=== PATIENT | male | born 1985 | race Caucasian/White ===

== ENCOUNTER 2017-02-07 20:15 | Emergency (ER) | payer OTHER ==
[~2017-02-07] VITALS: Ht 180.3 cm; Wt 101.0 kg
[2017-02-07 20:35] VITALS: BP 128/74
--- NOTE | 2017-02-07 21:01 | PHYS DOC ---
Past History Past Medical History: No Pertinent History Past Surgical History: Other Additional Past Surgical Histo: knee surgery Smoking: Non-smoker Alcohol Use: None Drug Use: None Adult General Chief Complaint Chief Complaint: SHOULDER INJURY [facility] HPI This patient is a pleasant 31-year-old male otherwise healthy who presents with shoulder pain that began approximately a week ago. While this patient was doing PT in the morning doing pushups he felt a sudden pop in his right shoulder with a burning pain with no radiation to the arm or fingers. He denies any neck pain and just ignore the painful next week. This morning while playing [employer] ball he felt increasing pain in his right shoulder exacerbated by rotational motion at the elbow and external rotation and abduction of the shoulder. He denies any obvious trauma, or prior injury to the shoulder. He is increased as I described with motion of the shoulder. It is a throbbing moderate pain is better with held in position of rest across the abdominal wall. Review of Systems Review of Systems Constitutional: Denies fever or chills [] Eyes: Denies change in visual acuity, redness, or eye pain [] HENT: Denies nasal congestion or sore throat [] Respiratory: Denies cough or shortness of breath [] Cardiovascular: No additional information not addressed in HPI [] GI: Denies abdominal pain, nausea, vomiting, bloody stools or diarrhea [] : Denies dysuria or hematuria [] Musculoskeletal: Denies back pain he does complain of right shoulder pain with movements Integument: Denies rash or skin lesions [] Neurologic: Denies headache, focal weakness or sensory changes [] Endocrine: Denies polyuria or polydipsia [] Allergies Allergies Allergies Coded Allergies Type Severity Reaction Last Updated Verified No Known Drug Allergies 12/25/14 No Physical Exam Physical Exam Constitutional: Well developed, well nourished, no acute distress, non-toxic appearance. [] Neck: Normal range of motion, no tenderness, supple, negative Spurling's test Cardiovascular:Heart rate regular rhythm, no murmur [] Lungs & Thorax: Bilateral breath sounds clear to auscultation [] Skin: Warm, dry, no erythema, no rash. [] Back: No tenderness, no CVA tenderness. [] Extremities: Tenderness specifically over the before meals joint with mild elevation and without soft tissue swelling or obvious clavicle deformity. Patient is decreased range of motion secondary to pain specifically with abduction external rotation of the elbow and elevation over the head. Neurologic: Alert and oriented X 3, normal motor function, normal sensory function, no focal deficits noted. [] Psychologic: Affect normal, judgement normal, mood normal. [] EKG EKG [] Radiology/Procedures Radiology/Procedures [] 3 view shoulder film timed 2039 6 PM 02/07/[address] Liu demonstrates no occult fracture alignment of the joint itself is within normal limits AC joint grade 1 sprain less than 50% elevation. Course & Med Decision Making Course & Med Decision Making Pertinent Labs and Imaging studies reviewed. (See chart for details) . Patient vital sign, nursing notes and physical exam and x-ray findings. Patient has a AC joint separation graded at level I. I'll provide him a sling pain medications and anti-inflammatories for comfort referral to his primary care doctor for physical therapy referral. Impression: Grade 1 AC joint injury and separation. Disposition: PCP follow-up with PT referral [] Dragon Disclaimer Dragon Disclaimer This chart was dictated in whole or in part using Voice Recognition software in a busy, high-work load, and often noisy Emergency Department environment. It may contain unintended and wholly unrecognized errors or omissions. Departure Departure: Impression: Primary Impression: Acromioclavicular joint separation, type 1 Additional Impression: AC joint pain Disposition: 01 HOME, SELF-CARE Referrals: AILEEN DOVE (PCP) Patient Instructions: Acromioclavicular Injuries Additional Instructions: Please follow-up with your primary care doctor in the next 24 hours for therapy referral please wear the sling and use the pain medications or symptoms. Return for any questions or concerns he might have increased pain despite treatment or decreased sensation in the upper arm or hand despite treatment. Scripts Naproxen (NAPROSYN) 500 Mg Tablet 1 TAB PO BID, #20 TAB 1 Refill Prov: SMITH LIU MD 02/07/17 Hydrocodone Bit/Acetaminophen (HYDROCODONE-APAP 5-325 ) 1 Each Tablet 1 TAB PO PRN Q6HRS Y for PAIN for 2 Days, #6 TAB 0 Refills Prov: SMITH LIU MD 02/07/17 Problem Qualifiers SMITH LIU MD Feb 07, 2017 21:01
[2017-02-07] MEDS ORDERED: HYDR-2758 PO (21:13)
[2017-02-07] MEDS ORDERED: NAPR500T PO (21:13)
--- NOTE | 2017-02-08 08:42 | RAD ---
RIGHT SHOULDER , 3 VIEWS Clinical Indication: Severe right shoulder pain after throwing injury one week ago, worse today Comparison: None. Findings: There is no acute fracture or dislocation. The acromioclavicular and glenohumeral joints are intact. The visualized lung is clear. There is no evidence of an acute displaced rib fracture. Small sclerotic densities in the humeral head may be bone islands. There is no soft tissue abnormality. IMPRESSION: No acute fracture or dislocation.
== END 2017-02-07 21:28 | disposition home or self-care (01) ==
LOC: ER 20:15
DX: S43.101A Unspecified dislocation of right acromioclavicular joint, initial encounter (principal); X58.XXXA Exposure to other specified factors, initial encounter; Y93.B2 Activity, push-ups, pull-ups, sit-ups; Y99.8 Other external cause status; Y92.89 Other specified places as the place of occurrence of the external cause
CPT/HCPCS: 73030; 99284

== ENCOUNTER 2017-10-04 18:47 | Emergency (ER) | payer OTHER ==
[~2017-10-04] VITALS: Ht 180.3 cm; Wt 103.9 kg
[~2017-10-04 18:47] MED LIST: HYDR-2758 PO; NAPR-683 PO
[2017-10-04] MEDS ORDERED: IBUP200T44 PO (19:03)
[2017-10-04] MEDS ORDERED: AMOX1TAB11 PO (19:03)
[2017-10-04] MEDS ORDERED: HYDR-2758 PO (19:03)
--- NOTE | 2017-10-04 19:21 | PHYS DOC ---
Past History Past Medical History: No Pertinent History Additional Past Medical Histor: prior ear infections Past Surgical History: Other Additional Past Surgical Histo: knee surgery, bilateral mastoidectomies Smoking: Cigarettes Alcohol Use: None Drug Use: None Adult General Chief Complaint Chief Complaint: FACE PAIN [facility] HPI Patient is a pleasant 32-year-old male with a known history of prior otitis media bilaterally that developed into cellulitis that required bilateral mastoidectomies. Patient has had one and half days of ear pain specifically in the left with radiation to the jaw a fullness in his ear without hearing loss, he's had no fevers no chills mild nasal congestion, we just presents with increasing facial pain without swelling vision changes or problems with his teeth. He denies any hot and cold food intolerance, denies any change in voice, denies any sore throat or cough. Review of Systems Review of Systems Constitutional: Denies fever or chills [] Eyes: Denies change in visual acuity, redness, or eye pain [] HENT: Slight nasal congestion without sore throat slight year pain in the left ear with jaw movement. No soft tissue swelling the ear ear canal or drainage from the ear. No hearing loss Respiratory: Denies cough or shortness of breath [] Cardiovascular: No additional information not addressed in HPI [] GI: Denies abdominal pain, nausea, vomiting, bloody stools or diarrhea [] : Denies dysuria or hematuria [] Musculoskeletal: Denies back pain or joint pain [] Integument: Denies rash or skin lesions [] Neurologic: Denies headache, focal weakness or sensory changes [] Endocrine: Denies polyuria or polydipsia [] All other systems were reviewed and found to be within normal limits, except as documented in this note. Allergies Allergies Allergies Coded Allergies Type Severity Reaction Last Updated Verified No Known Drug Allergies 12/25/14 No Physical Exam Physical Exam Of the vital signs noted on the chart patient noted to be hypertensive otherwise normal Constitutional: Well developed, well nourished, no acute distress, non-toxic appearance. [] HENT: Normocephalic, atraumatic, bilateral external ears normal, oropharynx moist, no oral exudates, nose normal. He has significant fluid behind the left TM there is bulging of the left TM without tenderness of the tragus or movement of the external pinna. No facial tenderness over the frontal and maxillary sinus. Normal looking dentition with no obvious signs of dental caries soft tissue swelling of the gingiva or mucosa. No exudates or tonsillar hypertrophy[] Eyes: PERRLA, EOMI, conjunctiva normal, no discharge. [] Neck: Normal range of motion, no tenderness, supple, no stridor. [No anterior cervical lymphadenopathy] Cardiovascular:Heart rate regular rhythm, no murmur [] Lungs & Thorax: Bilateral breath sounds clear to auscultation [] Neurologic: Alert and oriented X 3, normal motor function, normal sensory function, no focal deficits noted. [] Current Patient Data Vital Signs Vital Signs Date Time Temp Pulse Resp B/P (MAP) Pulse Ox O2 Delivery O2 Flow Rate FiO2 10/04/17 18:59 97.6 69 20 164/84 (110) 99 Room Air EKG EKG [] Radiology/Procedures Radiology/Procedures [] Course & Med Decision Making Course & Med Decision Making Pertinent Labs and Imaging studies reviewed. (See chart for details) []he presents with ear pain and in my estimation otitis media of the left ear. He does have some eschar secondary to prior PE tubes in his ears. There is no obvious otitis externa or soft tissue swelling external canal. Patient has no obvious signs of dentalgia or oral infection Patient is no facial swelling or tenderness to palpation over the frontal maxillary sinus. Patient's temporal artery is not palpably erythematous or noted. My impression is otitis media without complication otitis externa discharge: I've spoken with the patient and/or caregivers. I've explained the patient's condition, diagnosis and treatment plan based on information available to me at this time. I've answered the patient's and/or caregivers questions and addressed any concerns. The patient and/or caregivers have a good understanding the patient's diagnosis, condition and treatment plan as can be expected at this point. Vital signs have been stabilized. The patient's condition is stable for discharge from the emergency department. The patient will pursue further outpatient evaluation with her primary care provider or other designated consulting physician as outlined in the discharge instructions. Patient and/or caregivers are agreeable to this plan of care and follow-up instructions have been explained in detail. The patient and/or caregivers have received these instructions in written format and expressed understanding of these discharge instructions. The patient and her caregivers are aware that if any significant change in condition or worsening of symptoms should prompt him to immediately return to this of the closest emergency department. If an emergent department is not readily available I would encourage him to call 911. Dragon Disclaimer Dragon Disclaimer This electronic medical record was generated, in whole or in part, using a voice recognition dictation system. Departure Departure: Impression: Primary Impression: Otitis media Disposition: 01 HOME, SELF-CARE Condition: IMPROVED Referrals: AILEEN DOVE (PCP) Patient Instructions: Otitis Media, Adult Additional Instructions: discharge: I've spoken with the patient and/or caregivers. I've explained the patient's condition, diagnosis and treatment plan based on information available to me at this time. I've answered the patient's and/or caregivers questions and addressed any concerns. The patient and/or caregivers have a good understanding the patient's diagnosis, condition and treatment plan as can be expected at this point. Vital signs have been stabilized. The patient's condition is stable for discharge from the emergency department. The patient will pursue further outpatient evaluation with her primary care provider or other designated consulting physician as outlined in the discharge instructions. Patient and/or caregivers are agreeable to this plan of care and follow-up instructions have been explained in detail. The patient and/or caregivers have received these instructions in written format and expressed understanding of these discharge instructions. The patient and her caregivers are aware that if any significant change in condition or worsening of symptoms should prompt him to immediately return to this of the closest emergency department. If an emergent department is not readily available I would encourage him to call 911. Scripts Hydrocodone Bit/Acetaminophen (HYDROCODONE-APAP 5-325 ) 1 Each Tablet 1 TAB PO PRN Q6HRS Y for PAIN for 3 Days, #10 TAB 0 Refills Prov: SMITH LIU MD 10/04/17 Ibuprofen (MOTRIN IB) 200 Mg Tablet 400 MG PO QID for 7 Days, #56 TAB Prov: SMITH LIU MD 10/04/17 Amoxicillin/Potassium Clav (AMOX TR-K CLV 875-125 MG TAB) 1 Each Tablet 1 TAB PO BID, #20 TAB Prov: SMITH LIU MD 10/04/17 SMITH LIU MD Oct 04, 2017 19:21
[2017-10-04 19:30] VITALS: BP 135/87
[2017-10-04] MEDS ORDERED: HYDROcodone/APAP 5/325MG 1 TAB TABLET PO ONE (19:30)
[2017-10-04] MEDS ORDERED: AMOXICILLIN/K CLAV 875/125MG TABLET. PO ONE (19:30)
[2017-10-04] MEDS ORDERED: KETOROLAC 60 MG/2 ML VIAL. IM ONE (19:30)
== END 2017-10-04 19:30 | disposition home or self-care (01) ==
LOC: ER 18:47
DX: H66.92 Otitis media, unspecified, left ear (principal); R09.81 Nasal congestion; F17.210 Nicotine dependence, cigarettes, uncomplicated
CPT/HCPCS: 96372; 99283; J1885

== ENCOUNTER 2018-04-09 17:20 | Emergency (ER) | payer OTHER ==
[~2018-04-09] VITALS: Ht 177.8 cm; Wt 100.0 kg
[~2018-04-09 17:20] MED LIST changes: +AMOX1TAB11 PO; +IBUP200T44 PO
[2018-04-09] MEDS ORDERED: AMOX500C PO (18:13)
--- NOTE | 2018-04-09 18:13 | PHYS DOC ---
Past History Past Medical History: No Pertinent History, Other Additional Past Medical Histor: prior ear infections Past Surgical History: Knee Replacement, Other Additional Past Surgical Histo: knee surgery, bilateral mastoidectomies Smoking: Cigarettes Alcohol Use: None Drug Use: None Adult General Chief Complaint Chief Complaint: EARACHE/EAR PAIN [facility] HPI Patient is a 33 year old male who presents with complaint of left ear pain for the past 2 days. Patient states he's had similar symptoms with ear infection. Patient has had history of multiple ear infections and states that he has had a tympanostomy tube placed in the right ear and has had bilateral mastoidectomies done due to previous history of infection. Patient states he is having pain in his ear and along his left jaw. Patient denies associated fever and denies any drainage from the left ear. Patient's had no congestion or cough associated with symptoms. Review of Systems Review of Systems Constitutional: Denies fever or chills [] Eyes: Denies change in visual acuity, redness, or eye pain [] HENT: Left ear pain, denies sore throat[] Respiratory: Denies cough or shortness of breath [] Cardiovascular: No additional information not addressed in HPI [] GI: Denies abdominal pain, nausea, vomiting, bloody stools or diarrhea [] : Denies dysuria or hematuria [] Musculoskeletal: Denies back pain or joint pain [] Integument: Denies rash or skin lesions [] Neurologic: Denies headache, focal weakness or sensory changes [] All other systems were reviewed and found to be within normal limits, except as documented in this note. Allergies Allergies Allergies Coded Allergies Type Severity Reaction Last Updated Verified No Known Drug Allergies 12/25/14 No Physical Exam Physical Exam Constitutional: Well developed, well nourished, afebrile, appears in mild discomfort. [] HENT: Normocephalic, atraumatic, bilateral external ears normal, left TM bulging , erythematous, purulent effusion present in middle ear, right TM with tympanostomy tube, no drainage present, oropharynx moist, no oral exudates, nose normal. [] Eyes: PERRLA, EOMI, conjunctiva normal, no discharge. [] Neck: Normal range of motion, no tenderness, supple, no stridor. [] Cardiovascular:Heart rate regular rhythm, no murmur [] Lungs & Thorax: Bilateral breath sounds clear to auscultation [] Abdomen: Bowel sounds normal, soft, no tenderness, no masses, no pulsatile masses. [] Skin: Warm, dry, no erythema, no rash. [] Back: No tenderness, no CVA tenderness. [] Extremities: No tenderness, no cyanosis, no clubbing, ROM intact, no edema. [] Neurologic: Alert and oriented X 3, normal motor function, normal sensory function, no focal deficits noted. [] Current Patient Data Vital Signs Vital Signs Date Time Temp Pulse Resp B/P (MAP) Pulse Ox O2 Delivery O2 Flow Rate FiO2 04/09/18 17:37 97.9 69 18 98 Room Air Lab Results Not performed EKG EKG Not performed[] Radiology/Procedures Radiology/Procedures Not performed[] Course & Med Decision Making Course & Med Decision Making Pertinent Labs and Imaging studies reviewed. (See chart for details) Patient diagnosed with acute otitis media of the left inner ear. Patient started on amoxicillin and will continue on 10 day courses outpatient. Advised follow-up with primary doctor 5 days if symptoms are not improving and return to emergency department for any worsening symptoms. Patient was understanding and agreement with treatment plan.[] Dragon Disclaimer Dragon Disclaimer This electronic medical record was generated, in whole or in part, using a voice recognition dictation system. Departure Departure: Impression: Primary Impression: Acute otitis media Disposition: 01 HOME, SELF-CARE Condition: IMPROVED Referrals: AILEEN DOEV (PCP) Patient Instructions: Otitis Media, Adult Additional Instructions: Follow up with your primary doctor in the next 5 days if symptoms are not improving. Return to the emergency department for any worsening symptoms. Scripts Amoxicillin (AMOXICILLIN) 500 Mg Capsule 2 CAP PO BID, #40 CAP Prov: AUNG FRENCH MD 04/09/18 Problem Qualifiers Primary Impression: Acute otitis media Otitis media type: suppurative Laterality: left Recurrence: not specified as recurrent Spontaneous tympanic membrane rupture: without spontaneous rupture Qualified Codes: H66.002 - Acute suppurative otitis media without spontaneous rupture of ear drum, left ear AUNG FRENCH MD Apr 09, 2018 18:13
[2018-04-09] MEDS ORDERED: AMOXICILLIN 250 MG CAPSULE PO ONE (18:15)
[2018-04-09 18:40] VITALS: BP 122/82
== END 2018-04-09 18:57 | disposition home or self-care (01) ==
LOC: ER 17:20
DX: H66.002 Acute suppurative otitis media without spontaneous rupture of ear drum, left ear (principal); F17.210 Nicotine dependence, cigarettes, uncomplicated; Z96.22 Myringotomy tube(s) status; Z98.890 Other specified postprocedural states
CPT/HCPCS: 99283

== ENCOUNTER 2018-04-11 12:15 | Emergency (ER) | payer OTHER ==
[~2018-04-11] VITALS: Ht 180.3 cm; Wt 98.9 kg
[~2018-04-11 12:15] MED LIST changes: +AMOX500C PO
[2018-04-11 12:38] VITALS: BP 126/72
--- NOTE | 2018-04-11 14:18 | PHYS DOC ---
Past History Past Medical History: No Pertinent History, Other Additional Past Medical Histor: prior ear infections Past Surgical History: Knee Replacement, Other Additional Past Surgical Histo: knee surgery, bilateral mastoidectomies Smoking: Cigarettes Alcohol Use: None Drug Use: None Adult General Chief Complaint Chief Complaint: FACE PAIN HPI HPI 33-year-old male returns emergency room with left ear pain that radiates to his face. The patient was recently seen here and diagnosed with an ear infection. He was discharged on amoxicillin. He has been taking that for 3 days but the pain seems to be spreading to his upper and lower jaw on the left side of his face. The patient has significant ear infection history with a prosthetic in the left year and a tympanostomy tube in the right. He has had bilateral mastoidectomies. He denies fever or chills. He has no other complaints. Review of Systems Review of Systems Constitutional: Denies fever or chills [] Eyes: Denies change in visual acuity, redness, or eye pain [] HENT: Denies nasal congestion or sore throat. Left ear and jaw pain. [] Respiratory: Denies cough or shortness of breath [] Cardiovascular: No additional information not addressed in HPI [] GI: Denies abdominal pain, nausea, vomiting, bloody stools or diarrhea [] : Denies dysuria or hematuria [] Musculoskeletal: Denies back pain or joint pain [] Integument: Denies rash or skin lesions [] Neurologic: Denies headache, focal weakness or sensory changes [] Endocrine: Denies polyuria or polydipsia [] All other systems were reviewed and found to be within normal limits, except as documented in this note. Allergies Allergies Allergies Coded Allergies Type Severity Reaction Last Updated Verified No Known Drug Allergies 12/25/14 No Physical Exam Physical Exam Constitutional: Well developed, well nourished, no acute distress, non-toxic appearance. [] HENT: Normocephalic, atraumatic, bilateral external ears normal, oropharynx moist, no oral exudates, nose normal. Left tympanic membrane has scarring, but is also still bulging, mild erythema. No obvious infection of teeth or gums.[] Eyes: PERRLA, EOMI, conjunctiva normal, no discharge. [] Neck: Normal range of motion, no tenderness, supple, no stridor. [] Cardiovascular:Heart rate regular rhythm, no murmur [] Lungs & Thorax: Bilateral breath sounds clear to auscultation [] Abdomen: Bowel sounds normal, soft, no tenderness, no masses, no pulsatile masses. [] Skin: Warm, dry, no erythema, no rash. [] Back: No tenderness, no CVA tenderness. [] Extremities: No tenderness, no cyanosis, no clubbing, ROM intact, no edema. [] Neurologic: Alert and oriented X 3, normal motor function, normal sensory function, no focal deficits noted. [] Psychologic: Affect normal, judgement normal, mood normal. [] Current Patient Data Vital Signs Vital Signs Date Time Temp Pulse Resp B/P (MAP) Pulse Ox O2 Delivery O2 Flow Rate FiO2 04/11/18 12:38 97.5 77 16 126/72 (90) Room Air EKG EKG [] Radiology/Procedures Radiology/Procedures [] Course & Med Decision Making Course & Med Decision Making Pertinent Labs and Imaging studies reviewed. (See chart for details) I believe the patient is likely to fail amoxicillin treatment due to his history and the fact his condition is not improved after 3 days of antibiotics. I will give him a Toradol injection here as well as his first dose of Augmentin. I will discharge him on 10 days of Augmentin. He is stable for discharge at this time. [] Dragon Disclaimer Dragon Disclaimer This electronic medical record was generated, in whole or in part, using a voice recognition dictation system. Departure Departure: Referrals: AILEEN DOVE (PCP) Scripts Amoxicillin/Potassium Clav (AUGMENTIN 875-125 TABLET) 1 Each Tablet 1 TAB PO BID, #20 TAB Prov: RACHELL BIGGS DO 04/11/18 RACHELL BIGGS DO Apr 11, 2018 14:18
[2018-04-11] MEDS ORDERED: AMOX1TAB61 PO (14:20)
[2018-04-11] MEDS ORDERED: KETOROLAC 60 MG/2 ML VIAL. IM ONE (14:30)
[2018-04-11] MEDS ORDERED: AMOXICILLIN/K CLAV 875/125MG TABLET. PO ONE (14:30)
== END 2018-04-11 14:43 | disposition home or self-care (01) ==
LOC: ER 12:15
DX: H92.02 Otalgia, left ear (principal); F17.210 Nicotine dependence, cigarettes, uncomplicated; Z96.22 Myringotomy tube(s) status
CPT/HCPCS: 96372; 99283; J1885